=== PATIENT | female | born 1955 | race Two or more races ===

== ENCOUNTER 2023-11-06 11:57 | Emergency (ER) | payer OTHER ==
[~2023-11-06] VITALS: Ht 162.6 cm; Wt 72.6 kg
[2023-11-06] MEDS ORDERED: METFORMIN HCL1000 M2 PO (12:25)
[2023-11-06] MEDS ORDERED: JARDIANCE10 MG PO (12:25)
[2023-11-06] MEDS ORDERED: AMLODIPINE-OLM1 EAC2 PO (12:26)
[2023-11-06] MEDS ORDERED: ZESTORETIC 20-1 EAC1 PO (12:26)
[2023-11-06] MEDS ORDERED: HUMULIN N100 UNIT/2 IJ (12:27)
[2023-11-06] MEDS ORDERED: BUDESONIDE 0.5 MG/2 ML AMPUL.NEB IH STA (12:54)
[2023-11-06] MEDS ORDERED: HYDROCODONE/CHLORPHEN P-STIREX 5 ML ML PO STA (12:55)
[2023-11-06] MEDS ORDERED: LEVALBUTEROL HCL 1.25 MG/3 ML SOLUTION IH STA (12:55)
[2023-11-06 13:26] LABS: MEAN CORPUSCULAR HEMOGLOBIN 29.6 pg (27.00-32.0); PLATELET COUNT 254 K/uL (150-450); RED BLOOD COUNT 4.72 M/uL (4.00-6.00)
[2023-11-06 13:32] LABS: URINE APPEARANCE Cloudy; URINE BACTERIA 4824.2 uL (0.0-1933); URINE BILIRRUBIN Negative (NEGATIVE); URINE BLOOD Negative; URINE COLOR Yellow; URINE EPITHELIAL CELLS 55.4 uL (0.0-38.8); URINE GLUCOSE Negative (NEGATIVE); URINE KETONE Negative (NEGATIVE); URINE LEUKOCYTE Small; URINE NITRATE Positive; URINE PROTEIN Negative (NEGATIVE); URINE RBC 2.1 uL (0.0-20.8); URINE WBC 25.5 uL (0.0-23.2)
[2023-11-06 13:51] LABS: CALCIUM 9.8 mg/dL (8.5-10.1); CREATININE SERUM 0.77 mg/dL (0.55-1.02); GFR 74.77; POTASSIUM 4.02 mEq/L (3.5-5.1)
[2023-11-06 14:00] LABS: URINE CAST 1.37 uL (0.0-1.40)
== END 2023-11-06 15:11 | disposition home or self-care (01) ==
LOC: ER 11:58
PROVIDERS: General Practice
DX: J40 Bronchitis, not specified as acute or chronic (principal); R05.9 Cough, unspecified; Z20.822 Contact with and (suspected) exposure to COVID-19; I10 Essential (primary) hypertension; E11.9 Type 2 diabetes mellitus without complications; Z79.84 Long term (current) use of oral hypoglycemic drugs

== ENCOUNTER 2023-12-26 15:38 | Inpatient (IN) | payer OTHER ==
[~2023-12-26] VITALS: Ht 152.4 cm; Wt 77.1 kg
[~2023-12-26 15:38] MED LIST: AMLODIPINE-OLM1 EAC2 PO; HUMULIN N100 UNIT/2 IJ; JARDIANCE10 MG PO; METFORMIN HCL1000 M2 PO; ZESTORETIC 20-1 EAC1 PO
[2023-12-26] MEDS ORDERED: 0.9 % SODIUM CHLORIDE 500 ML IV ONE (16:30)
[2023-12-26] MEDS ORDERED: INSULIN REGULAR, HUMAN 1,000 UNIT/10 ML UNITS IV NR (16:30)
[2023-12-26] MEDS ORDERED: SODIUM HYPOCHLORITE 1OZ TOP SCH (17:00)
[2023-12-26 17:26] LABS: HEMATOCRIT 42.8 % (36.0-45.00); HEMOGLOBIN 14.2 g/dL (12.0-15.00); MEAN CELL VOLUME 87.6 fL (80.00-100.00); MEAN CORPUSCULAR HGB CONC 33.1 g/dl (32.0-36.0); PLATELET COUNT 367 K/uL (150-450); RED BLOOD COUNT 4.88 M/uL (4.00-6.00); RED CELL DISTRIBUTION WIDTH 14.2 % (11.5-14.5)
[2023-12-26 17:32] LABS: ERYTHROCYTE SEDIMENTATION RATE 50 mm/hr
[2023-12-26 17:37] LABS: PARTIAL THROMBOPLASTIN TIME 24.6 SECONDS (22.0-34.0); PROTHROMBIN TIME 10.9 SECONDS (9.0-11.5)
[2023-12-26 17:41] LABS: ALBUMIN 3.5 gm/dL (3.4-5.0); BILIRUBIN TOTAL 0.32 mg/dL (0.3-1.2); C-REACTIVE PROTEIN 3.23 MG/DL (0.00-0.29); CALCIUM 9.1 mg/dL (8.5-10.1); CREATININE SERUM 0.88 mg/dL (0.55-1.02); GFR 63.9; GLOBULINA 4.9 G/DL (2.4-3.5); POTASSIUM 3.71 mEq/L (3.5-5.1); TOTAL PROTEIN 8.4 gm/dL (6.4-8.2)
[2023-12-26] MEDS ORDERED: CEFTRIAXONE SODIUM 2,000 MG VIAL IV ONE (18:15)
[2023-12-26] MEDS ORDERED: LOSARTAN POTASSIUM 50 MG TABLET PO SCH (18:42)
[2023-12-26] MEDS ORDERED: VANCOMYCIN HCL 1,000 MG VIAL IV SCH (18:44)
[2023-12-26] MEDS ORDERED: CEFEPIME HCL 2,000 MG in 0.9 % SODIUM CHLORIDE 100 ML IV SCH (18:44)
[2023-12-26] MEDS ORDERED: ENALAPRILAT DIHYDRATE 1.25 MG/ML VIAL IV PRN (18:45)
[2023-12-26] MEDS ORDERED: ACETAMINOPHEN 500 MG GEL..CAP PO PRN (18:45)
[2023-12-26] MEDS ORDERED: INSULIN LISPRO 1,000 UNIT/10 ML UNITS SUBCUTANEO PRN (19:00)
[2023-12-26] MEDS ORDERED: 0.9 % SODIUM CHLORIDE 1,000 ML IV SCH (19:00)
[2023-12-26] MEDS ORDERED: DEXTROSE 50 % IN WATER 0.5 G/ML DISP.SYRIN IV PRN (19:00)
[2023-12-27] MEDS ORDERED: DEXTROSE 50 % IN WATER 0.5 G/ML DISP.SYRIN IV PRN (00:45)
[2023-12-27] MEDS ORDERED: INSULIN LISPRO 1,000 UNIT/10 ML UNITS SUBCUTANEO PRN (00:45)
[2023-12-27 01:37] VITALS: BP 186/75; O2SAT 99
[2023-12-27 03:50] LABS: URINE APPEARANCE Clear; URINE BILIRRUBIN Negative (NEGATIVE); URINE BLOOD Negative; URINE COLOR Yellow; URINE KETONE Negative (NEGATIVE); URINE LEUKOCYTE Moderate; URINE NITRATE Negative; URINE PROTEIN Negative (NEGATIVE); URINE UROBILINOGEN 0.2 E.U./dl
[2023-12-27 03:53] LABS: URINE EPITHELIAL CELLS 15.1 uL (0.0-38.8); URINE WBC 161.3 uL (0.0-23.2)
[2023-12-27 03:58] LABS: URINE GLUCOSE 500 MG/DL (NEGATIVE)
[2023-12-27 07:19] LABS: CHOL HDL RATIO 1.9 (0-5.0); TSH 0.885 uIU/mL (0.358-3.74)
[2023-12-27] MEDS ORDERED: ENOXAPARIN SODIUM 40 MG/0.4 ML SYRINGE SUBCUTANEO SCH (09:00)
[2023-12-27] MEDS ORDERED: FAMOTIDINE/PF 20 MG in 0.9 % SODIUM CHLORIDE 8 ML IV PUSH SCH (09:00)
[2023-12-27] MEDS ORDERED: METROnidazole 500 MG TABLET PO SCH (09:00)
[2023-12-27] MEDS ORDERED: CEFEPIME HCL 2,000 MG in 0.9 % SODIUM CHLORIDE 100 ML IV SCH (09:00)
[2023-12-27] MEDS ORDERED: GABAPENTIN 300 MG CAPSULE PO SCH (09:00)
[2023-12-27] MEDS ORDERED: INSULIN GLARGINE,HUM.REC.ANLOG 1,000 UNITS/10 ML UNITS SUBCUTANEO SCH (09:00)
[2023-12-27 09:07] VITALS: BP 131/77; O2SAT 97
[2023-12-27 09:10] VITALS: BP 163/85; O2SAT 97
[2023-12-27] MEDS ORDERED: AMLODIPINE BESYLATE 5 MG TABLET PO SCH (11:16)
[2023-12-27 16:37] VITALS: BP 120/88
[2023-12-28 01:11] VITALS: BP 177/80; O2SAT 99
[2023-12-28] MEDS ORDERED: INSULIN LISPRO 1,000 UNIT/10 ML UNITS SUBCUTANEO STA (08:53)
[2023-12-28 09:11] VITALS: BP 186/75; O2SAT 94
[2023-12-28] MEDS ORDERED: LOSARTAN POTASSIUM 100 MG TABLET PO NR (10:21)
[2023-12-28] MEDS ORDERED: AMLODIPINE BESYLATE 10 MG TABLET PO NR (10:21)
[2023-12-28] MEDS ORDERED: hydrALAZINE HCL 20 MG VIAL IV PRN (17:00)
[2023-12-28 18:46] VITALS: BP 183/74
[2023-12-29 02:15] VITALS: BP 118/52
[2023-12-29 04:18] LABS: HEMATOCRIT 39.4 % (36.0-45.00); HEMOGLOBIN 13.5 g/dL (12.0-15.00); MEAN CELL VOLUME 85.8 fL (80.00-100.00); MEAN CORPUSCULAR HEMOGLOBIN 29.4 pg (27.00-32.0); MEAN CORPUSCULAR HGB CONC 34.2 g/dl (32.0-36.0); PLATELET COUNT 317 K/uL (150-450); RED BLOOD COUNT 4.59 M/uL (4.00-6.00); RED CELL DISTRIBUTION WIDTH 14.5 % (11.5-14.5)
[2023-12-29 04:30] LABS: ALBUMIN 2.9 gm/dL (3.4-5.0); ALKALINE PHOSPHATASE 69 U/L (50-136); ANION GAP 11 (10.0-20.0); BILIRUBIN TOTAL 0.21 mg/dL (0.3-1.2); BLOOD UREA NITROGEN 22 mg/dL (7-18); BUN CREA RATIO 27 (7.0-25.0); CALCIUM 8.7 mg/dL (8.5-10.1); CARBON DIOXIDE 27 mEq/L (21-32); CHLORIDE 106 mmol/L (98-107); CREATININE SERUM 0.83 mg/dL (0.55-1.02); GFR 68.36; GLOBULINA 3.8 G/DL (2.4-3.5); PHOSPHOROUS 2.1 mg/dL (2.5-4.9); POTASSIUM 4.12 mEq/L (3.5-5.1); SODIUM 140 mmol/L (136-145); TOTAL PROTEIN 6.7 gm/dL (6.4-8.2)
[2023-12-29 04:38] LABS: ALT/SGPT 16 U/L (12-78); AST/SGOT < 3 U/L (15-37); GLUCOSE FASTING 307 mg/dL (65-100); OSMOLALITY SERUM 294 MOSM/KG (275-295)
[2023-12-29] MEDS ORDERED: INSULIN LISPRO 1,000 UNIT/10 ML UNITS SUBCUTANEO SCH (08:00)
[2023-12-29] MEDS ORDERED: ONDANSETRON HCL 4 MG in 0.9 % SODIUM CHLORIDE 50 ML IV PRN (08:15)
[2023-12-29 08:39] VITALS: BP 140/74; O2SAT 99
[2023-12-29] MEDS ORDERED: AMLODIPINE BESYLATE 10 MG TABLET PO SCH (09:00)
[2023-12-29] MEDS ORDERED: LOSARTAN POTASSIUM 100 MG TABLET PO SCH (09:00)
[2023-12-29] MEDS ORDERED: POTASSIUM PHOS,M-BASIC-D-BASIC 15 MM in 0.9 % SODIUM CHLORIDE 250 ML IV NR (10:40)
[2023-12-29] MEDS ORDERED: MAGNESIUM SULFATE IN WATER 50 ML IV NR (10:41)
[2023-12-29] MEDS ORDERED: METOCLOPRAMIDE HCL 5 MG/ML VIAL IV SCH (10:50)
[2023-12-29 17:10] VITALS: BP 140/63
[2023-12-30 02:20] VITALS: BP 196/92
[2023-12-30 08:37] VITALS: BP 165/70
[2023-12-30] MEDS ORDERED: HYDROCHLOROTHIAZIDE 25 MG TABLET PO SCH (11:14)
[2023-12-30] MEDS ORDERED: INSULIN LISPRO 1,000 UNIT/10 ML UNITS SUBCUTANEO SCH (12:00)
[2023-12-30] MEDS ORDERED: BENZONATATE 100 MG CAPSULE PO PRN (17:00)
[2023-12-30] MEDS ORDERED: GABAPENTIN 300 MG CAPSULE PO PRN (17:00)
[2023-12-30] MEDS ORDERED: hydrALAZINE HCL 25 MG TABLET PO SCH (17:01)
[2023-12-30 17:22] VITALS: BP 160/80
[2023-12-31 02:39] VITALS: BP 142/82; O2SAT 95
[2023-12-31 08:01] VITALS: BP 165/74
[2023-12-31] MEDS ORDERED: INSULIN GLARGINE,HUM.REC.ANLOG 1,000 UNITS/10 ML UNITS SUBCUTANEO SCH (09:00)
[2023-12-31 16:48] VITALS: BP 154/73
[2023-12-31] MEDS ORDERED: CEFTRIAXONE SODIUM 2,000 MG VIAL IV SCH (17:00)
[2023-12-31] MEDS ORDERED: DOXAZOSIN MESYLATE 4 MG TABLET PO SCH (17:56)
[2023-12-31] MEDS ORDERED: METOPROLOL SUCCINATE 25 MG TAB.SR.24H PO SCH (17:58)
[2023-12-31] MEDS ORDERED: MELATONIN 5 MG TABLET PO SCH (21:00)
[2024-01-01 00:27] VITALS: BP 145/70; O2SAT 98
[2024-01-01 07:58] VITALS: BP 149/78
[2024-01-01] MEDS ORDERED: INSULIN LISPRO 1,000 UNIT/10 ML UNITS SUBCUTANEO SCH ×3 (08:00→17:00)
[2024-01-01] MEDS ORDERED: INSULIN GLARGINE,HUM.REC.ANLOG 1,000 UNITS/10 ML UNITS SUBCUTANEO SCH (09:00)
[2024-01-01 15:00] VITALS: BP 149/74; O2SAT 92
[2024-01-01] MEDS ORDERED: FAMOtidine 20 MG TABLET PO SCH (21:00)
[2024-01-02 00:45] VITALS: BP 151/69; O2SAT 95
[2024-01-02 06:15] LABS: HEMATOCRIT 40.9 % (36.0-45.00); MEAN CELL VOLUME 86.3 fL (80.00-100.00); MEAN CORPUSCULAR HEMOGLOBIN 29.6 pg (27.00-32.0); MEAN CORPUSCULAR HGB CONC 34.3 g/dl (32.0-36.0); PLATELET COUNT 282 K/uL (150-450); RED BLOOD COUNT 4.74 M/uL (4.00-6.00); RED CELL DISTRIBUTION WIDTH 14.3 % (11.5-14.5)
[2024-01-02 07:07] LABS: ALBUMIN 2.7 gm/dL (3.4-5.0); BILIRUBIN TOTAL 0.35 mg/dL (0.3-1.2); CALCIUM 8.7 mg/dL (8.5-10.1); CREATININE SERUM 0.54 mg/dL (0.55-1.02); GFR 112.27; GLOBULINA 3.5 G/DL (2.4-3.5); MAGNESIUM 1.5 mg/dL (1.8-2.4); POTASSIUM 3.41 mEq/L (3.5-5.1); TOTAL PROTEIN 6.2 gm/dL (6.4-8.2)
[2024-01-02 08:14] VITALS: BP 140/87; O2SAT 97
[2024-01-02] MEDS ORDERED: INSULIN LISPRO 1,000 UNIT/10 ML UNITS SUBCUTANEO SCH ×2 (08:24→12:00)
[2024-01-02] MEDS ORDERED: INSULIN GLARGINE,HUM.REC.ANLOG 1,000 UNITS/10 ML UNITS SUBCUTANEO SCH (09:00)
[2024-01-02] MEDS ORDERED: POTASSIUM CHLORIDE 20MEQ/100ML H2O PB IV NR (11:15)
[2024-01-02] MEDS ORDERED: POTASSIUM BICARBONATE/CIT AC 25 MEQ TABLET.EFF PO NR (11:15)
[2024-01-02] MEDS ORDERED: MAGNESIUM SULFATE IN WATER 4 GM/100 ML PIGGYBACK IV STA (11:39)
[2024-01-02 16:47] VITALS: BP 127/60; O2SAT 94
[2024-01-03 01:07] VITALS: BP 127/67; O2SAT 90
[2024-01-03 08:34] VITALS: BP 160/77; O2SAT 95
[2024-01-03] MEDS ORDERED: LOSARTAN POTAS100 MG PO (13:06)
[2024-01-03] MEDS ORDERED: METRONIDAZOLE500 MG PO (13:06)
[2024-01-03] MEDS ORDERED: AMLODIPINE BESY10 MG PO (13:06)
[2024-01-03] MEDS ORDERED: HYDRALAZINE HCL25 MG PO (13:07)
[2024-01-03] MEDS ORDERED: GABAPENTIN300 MG PO (13:07)
[2024-01-03] MEDS ORDERED: TOPROL XL25 M1 PO (13:07)
[2024-01-03] MEDS ORDERED: PROTONIX20 MG PO (13:08)
[2024-01-03] MEDS ORDERED: BENZONATATE100 MG PO (13:08)
[2024-01-03] MEDS ORDERED: HYDROCHLOROTHIA25 MG PO (13:08)
[2024-01-03] MEDS ORDERED: MELATONIN5 M2 PO (13:09)
[2024-01-03] MEDS ORDERED: METROnidazole 500 MG TABLET PO SCH (17:00)
[2024-01-03 17:07] VITALS: BP 126/63; O2SAT 98
== END 2024-01-03 17:24 | disposition home or self-care (01) | DRG 982 ==
LOC: ER 15:40 → SEC-K 19:10 → MEDI 19:10
PROVIDERS: General Practice; Nurse Practitioner Family; ADMIT Internal Medicine; ATTEND Internal Medicine
PROC: B44HZZZ Ultrasonography of Bilateral Lower Extremity Arteries (ICD-10-PCS; 2023-12-26)
PROC: B54DZZZ Ultrasonography of Bilateral Lower Extremity Veins (ICD-10-PCS; 2023-12-26)
PROC: 0JDR0ZZ Extraction of Left Foot Subcutaneous Tissue and Fascia, Open Approach (ICD-10-PCS; principal; 2023-12-27)
PROC: 0JDQ0ZZ Extraction of Right Foot Subcutaneous Tissue and Fascia, Open Approach (ICD-10-PCS; 2023-12-27)
PROC: 0JDR0ZZ Extraction of Left Foot Subcutaneous Tissue and Fascia, Open Approach (ICD-10-PCS; 2024-01-01)
PROC: 0JDQ0ZZ Extraction of Right Foot Subcutaneous Tissue and Fascia, Open Approach (ICD-10-PCS; 2024-01-01)
DX: E11.621 Type 2 diabetes mellitus with foot ulcer (principal); L03.115 Cellulitis of right lower limb; L97.319 Non-pressure chronic ulcer of right ankle with unspecified severity; L97.329 Non-pressure chronic ulcer of left ankle with unspecified severity; L03.116 Cellulitis of left lower limb; Z79.4 Long term (current) use of insulin; L08.9 Local infection of the skin and subcutaneous tissue, unspecified; B95.61 Methicillin susceptible Staphylococcus aureus infection as the cause of diseases classified elsewhere; B96.1 Klebsiella pneumoniae [K. pneumoniae] as the cause of diseases classified elsewhere; B96.89 Other specified bacterial agents as the cause of diseases classified elsewhere; E11.65 Type 2 diabetes mellitus with hyperglycemia; I10 Essential (primary) hypertension; I87.2 Venous insufficiency (chronic) (peripheral); E87.6 Hypokalemia; I83.93 Asymptomatic varicose veins of bilateral lower extremities

== ENCOUNTER 2024-11-17 17:18 | Inpatient (IN) | payer OTHER ==
[~2024-11-17] VITALS: Ht 152.4 cm; Wt 81.6 kg
[~2024-11-17 17:18] MED LIST changes: +AMLODIPINE BESY10 MG PO; +BENZONATATE100 MG PO; +GABAPENTIN300 MG PO; +HYDRALAZINE HCL25 MG PO; +HYDROCHLOROTHIA25 MG PO; +LOSARTAN POTAS100 MG PO; +MELATONIN5 M2 PO; +METRONIDAZOLE500 MG PO; +PROTONIX20 MG PO; +TOPROL XL25 M1 PO
--- NOTE | 2024-11-17 18:35 | NUR ---
PACIENTE ALERTA Y ORIENTADA X3 QUIEN REFIERE VENIR POR DOLOR ABDOMINO PELVICO DESDE HACE VARIOS GLASS. REFIERE PODER EVACUAR MARCELLA Y ORINAR.
[2024-11-17] MEDS ORDERED: FAMOTIDINE/PF 20 MG in 0.9 % SODIUM CHLORIDE 8 ML IV PUSH STA (18:58)
[2024-11-17] MEDS ORDERED: KETOROLAC TROMETHAMINE 15 MG VIAL IV ONE (19:00)
[2024-11-17 19:25] LABS: BASO % 0.2 % (0.1-1.2); EOS # 0.04 (0.04-0.54); EOS % 0.3 % (0.7-7.0); LYMPH # 1.33 (1.18-3.74); LYMPH % 10.5 % (19.3-53.1); MEAN PLATELET VOLUME 11.00 fl (9.4-12.4); MONO # 0.78 (0.24-0.82); MONO % 6.1 % (4.7-12.5); NEUT # 10.46 (1.56-6.13); NEUT % 82.5 % (34.0-71.1); RED CELL DISTRIBUTION WIDTH 13.2 % (11.6-14.4)
--- NOTE | 2024-11-17 19:25 | NUR ---
SE ORIENTA A PTE SOBRE TX MEDICO LA MSIMA REFIERE ENTENDER Y ACEPTAR. SE COLOCA H/L EN MANO DERECHA, SE RECOLECTAN MUESTRAS DE LAB Y SE ADMINISTRAN MEDICAMENTOS AMOL ORDEN MEDICA.
[2024-11-17 19:53] LABS: ALT/SGPT 91.0 U/L (12-78); AST/SGOT 183.0 U/L (15-37); BILIRUBIN TOTAL 0.37 mg/dL (0.3-1.2); GLOBULINA 4.7 G/DL (2.4-3.5); GLUCOSE FASTING 175.0 mg/dL (65-100)
[2024-11-17 20:06] LABS: BUN CREA RATIO 12.0 (7.0-25.0); GFR 5.6; OSMOLALITY SERUM 303.0 MOSM/KG (275-295)
[2024-11-17 20:08] LABS: CREATININE SERUM 7.24 mg/dL (0.55-1.02)
[2024-11-17 21:06] LABS: URINE APPEARANCE Clear; URINE BILIRRUBIN Negative (NEGATIVE); URINE BLOOD Large; URINE COLOR Yellow; URINE KETONE Negative (NEGATIVE); URINE LEUKOCYTE Trace; URINE NITRATE Negative; URINE UROBILINOGEN 0.2 E.U./dl
[2024-11-17 21:10] LABS: URINE BACTERIA 384.0 uL (0.0-1933); URINE EPITHELIAL CELLS 21.9 uL (0.0-38.8); URINE RBC 21.4 uL (0.0-20.8); URINE WBC 17.3 uL (0.0-23.2)
[2024-11-17] MEDS ORDERED: 0.9 % SODIUM CHLORIDE 1,000 ML IV SCH (21:30)
[2024-11-17] MEDS ORDERED: ACETAMINOPHEN 500 MG GEL..CAP PO PRN (21:30)
[2024-11-17] MEDS ORDERED: 0.9 % SODIUM CHLORIDE 1,000 ML IV ONE ×2 (21:30)
[2024-11-17] MEDS ORDERED: POTASSIUM CHLORIDE IN WATER 100 ML IV SCH (21:31)
[2024-11-17] MEDS ORDERED: INSULIN LISPRO 1,000 UNIT/10 ML UNITS SUBCUTANEO PRN (21:45)
[2024-11-17] MEDS ORDERED: DEXTROSE 50 % IN WATER 0.5 G/ML DISP.SYRIN IV PRN (21:45)
[2024-11-17] MEDS ORDERED: ONDANSETRON HCL 4 MG in 0.9 % SODIUM CHLORIDE 50 ML IV PRN (21:45)
[2024-11-17 21:46] LABS: URINE CAST 0.29 uL (0.0-1.40); URINE GLUCOSE 100 MG/DL (NEGATIVE); URINE PROTEIN 100 (NEGATIVE)
[2024-11-17 21:49] LABS: URINE YEAST FEW /hpf
[2024-11-17 22:31] LABS: ABG PH 7.342 (7.35-7.45); ABG PO2 82.4 mmHg (80-100); BICARBONATE 20.1 mmol/l (23-25)
[2024-11-17 22:46] LABS: INR 1.08
[2024-11-17 23:13] VITALS: BP 158/74
[2024-11-17 23:56] LABS: o2 21 %
[2024-11-18 04:20] VITALS: BP 186/79; O2SAT 96
[2024-11-18 08:35] VITALS: BP 159/78; O2SAT 96
[2024-11-18] MEDS ORDERED: ENOXAPARIN SODIUM 30 MG/0.3 ML SYRINGE SUBCUTANEO SCH (09:00)
[2024-11-18] MEDS ORDERED: METOPROLOL SUCCINATE 25 MG TAB.SR.24H PO SCH (09:00)
[2024-11-18] MEDS ORDERED: AMLODIPINE BESYLATE 10 MG TABLET PO SCH (09:00)
[2024-11-18 18:10] VITALS: BP 147/63
[2024-11-18] MEDS ORDERED: LACTOBACILLUS ACIDOPHILUS 1 CAP CAP PO SCH (18:32)
[2024-11-18] MEDS ORDERED: PIPERACILLIN/TAZOBACTAM SODIUM 2.25 GM VIAL IV SCH (21:00)
[2024-11-19 00:41] VITALS: BP 134/73; O2SAT 94
[2024-11-19] MEDS ORDERED: INSULIN LISPRO 1,000 UNIT/10 ML UNITS SUBCUTANEO SCH (08:00)
[2024-11-19] MEDS ORDERED: INSULIN NPH HUM/REG INSULIN HM 1,000 UNIT/10 ML UNITS SUBCUTANEO SCH ×2 (08:00→17:00)
[2024-11-19 08:09] VITALS: BP 138/64; O2SAT 94
[2024-11-19] MEDS ORDERED: INSULIN GLARGINE,HUM.REC.ANLOG 1,000 UNITS/10 ML UNITS SUBCUTANEO SCH (09:00)
[2024-11-19] MEDS ORDERED: CHLORHEXIDINE GLUCONATE 120 ML BOTTLE TOP SCH (09:00)
[2024-11-19 14:06] LABS: BASO % 0.3 % (0.1-1.2); EOS # 0.18 (0.04-0.54); EOS % 1.5 % (0.7-7.0); LYMPH # 0.98 (1.18-3.74); LYMPH % 8.3 % (19.3-53.1); MEAN PLATELET VOLUME 11.40 fl (9.4-12.4); MONO # 0.66 (0.24-0.82); MONO % 5.6 % (4.7-12.5); NEUT # 9.92 (1.56-6.13); NEUT % 83.9 % (34.0-71.1); RED CELL DISTRIBUTION WIDTH 13.3 % (11.6-14.4)
[2024-11-19 14:15] LABS: ERYTHROCYTE SEDIMENTATION RATE 68 mm/hr (0-30)
[2024-11-19 14:42] LABS: ALT/SGPT 136.0 U/L (12-78); AST/SGOT 194.0 U/L (15-37); BILIRUBIN TOTAL 0.36 mg/dL (0.3-1.2); GLOBULINA 3.6 G/DL (2.4-3.5)
[2024-11-19 14:49] LABS: BUN CREA RATIO 16.0 (7.0-25.0); GFR 5.53; GLUCOSE FASTING 282.0 mg/dL (65-100); OSMOLALITY SERUM 322.0 MOSM/KG (275-295)
[2024-11-19 14:53] LABS: CREATININE SERUM 7.32 mg/dL (0.55-1.02)
[2024-11-19 18:33] VITALS: BP 137/85
[2024-11-20 00:35] VITALS: BP 123/76
[2024-11-20 08:53] VITALS: BP 140/70; O2SAT 94
[2024-11-20 16:34] LABS: FECAL LEUKOCYTES NEGATIVE (NEGATIVE); ob POSITIVE (NEGATIVE)
[2024-11-20 16:52] VITALS: BP 113/68; O2SAT 95
[2024-11-21 01:02] VITALS: BP 134/74; O2SAT 95
[2024-11-21 09:20] VITALS: BP 144/82; O2SAT 97
[2024-11-21] MEDS ORDERED: MEROPENEM 500 MG/VIAL VIAL IV STA (09:36)
[2024-11-21 10:58] LABS: BASO % 0.3 % (0.1-1.2); EOS # 0.36 (0.04-0.54); EOS % 2.5 % (0.7-7.0); LYMPH # 1.13 (1.18-3.74); LYMPH % 8.0 % (19.3-53.1); MEAN PLATELET VOLUME 10.60 fl (9.4-12.4); MONO # 0.68 (0.24-0.82); MONO % 4.8 % (4.7-12.5); NEUT # 11.89 (1.56-6.13); NEUT % 83.7 % (34.0-71.1); RED CELL DISTRIBUTION WIDTH 13.5 % (11.6-14.4)
[2024-11-21 12:00] LABS: ALT/SGPT 164.0 U/L (12-78); AST/SGOT 129.0 U/L (15-37); BILIRUBIN TOTAL 0.38 mg/dL (0.3-1.2); GLOBULINA 3.6 G/DL (2.4-3.5)
[2024-11-21 12:55] LABS: OSMOLALITY SERUM 335.0 MOSM/KG (275-295)
[2024-11-21 12:56] LABS: BUN CREA RATIO 21.0 (7.0-25.0); GFR 6.99
[2024-11-21 12:57] LABS: GLUCOSE FASTING 338.0 mg/dL (65-100)
[2024-11-21 12:58] LABS: CREATININE SERUM 5.97 mg/dL (0.55-1.02)
[2024-11-21 17:34] VITALS: BP 113/67; O2SAT 96
[2024-11-21] MEDS ORDERED: MEROPENEM 500 MG/VIAL VIAL IV SCH (21:00)
[2024-11-22 02:08] VITALS: BP 142/67
[2024-11-22 08:01] LABS: ALT/SGPT 139.0 U/L (12-78); AST/SGOT 68.0 U/L (15-37); BILIRUBIN TOTAL 0.32 mg/dL (0.3-1.2); GLOBULINA 3.2 G/DL (2.4-3.5)
[2024-11-22 08:23] LABS: BUN CREA RATIO 25.0 (7.0-25.0); GFR 6.95; GLUCOSE FASTING 281.0 mg/dL (65-100); OSMOLALITY SERUM 342.0 MOSM/KG (275-295)
[2024-11-22 08:24] LABS: CREATININE SERUM 6.0 mg/dL (0.55-1.02)
[2024-11-22 09:17] VITALS: BP 148/75
[2024-11-22] MEDS ORDERED: INSULIN NPH HUM/REG INSULIN HM 1,000 UNIT/10 ML UNITS SUBCUTANEO SCH ×2 (10:21→17:00)
[2024-11-22] MEDS ORDERED: POTASSIUM CHLORIDE IN WATER 100 ML IV SCH (16:00)
[2024-11-22 17:55] VITALS: BP 125/67; O2SAT 93
[2024-11-23 02:05] VITALS: BP 130/65; O2SAT 97
[2024-11-23 07:55] LABS: BASO % 0.2 % (0.1-1.2); EOS # 0.35 (0.04-0.54); EOS % 2.8 % (0.7-7.0); LYMPH # 1.18 (1.18-3.74); LYMPH % 9.3 % (19.3-53.1); MEAN PLATELET VOLUME 11.10 fl (9.4-12.4); MONO # 0.81 (0.24-0.82); MONO % 6.4 % (4.7-12.5); NEUT # 10.25 (1.56-6.13); NEUT % 80.5 % (34.0-71.1); RED CELL DISTRIBUTION WIDTH 13.7 % (11.6-14.4)
[2024-11-23 08:42] VITALS: BP 140/79; O2SAT 99
[2024-11-23 18:36] VITALS: BP 120/54; O2SAT 97
[2024-11-23] MEDS ORDERED: LOPERAMIDE HCL 2 MG CAPSULE PO PRN (19:15)
[2024-11-24 02:15] VITALS: BP 150/70; O2SAT 96
[2024-11-24 06:56] LABS: ALT/SGPT 99.0 U/L (12-78); AST/SGOT 32.0 U/L (15-37); BILIRUBIN TOTAL 0.43 mg/dL (0.3-1.2); GFR 10.27; GLOBULINA 3.8 G/DL (2.4-3.5); GLUCOSE FASTING 169.0 mg/dL (65-100)
[2024-11-24 07:28] LABS: BUN CREA RATIO 31.0 (7.0-25.0); OSMOLALITY SERUM 332.0 MOSM/KG (275-295)
[2024-11-24 07:29] LABS: CREATININE SERUM 4.28 mg/dL (0.55-1.02)
[2024-11-24 09:52] VITALS: BP 137/71; O2SAT 95
[2024-11-24] MEDS ORDERED: POTASSIUM BICARBONATE/CIT AC 25 MEQ TABLET.EFF PO SCH (12:00)
[2024-11-24 16:25] VITALS: BP 126/63
[2024-11-25 02:18] VITALS: BP 141/73; O2SAT 97
[2024-11-25 06:55] LABS: BUN CREA RATIO 35.0 (7.0-25.0); CREATININE SERUM 3.56 mg/dL (0.55-1.02); GFR 12.7; GLUCOSE FASTING 158.0 mg/dL (65-100); OSMOLALITY SERUM 334.0 MOSM/KG (275-295)
[2024-11-25 09:06] VITALS: BP 130/65; O2SAT 95
[2024-11-25] MEDS ORDERED: MAGNESIUM SULFATE IN WATER 50 ML IV NR (14:00)
[2024-11-25] MEDS ORDERED: POTASSIUM CHLORIDE IN WATER 100 ML IV NR (17:00)
[2024-11-25] MEDS ORDERED: CALCIUM CARBONATE/VITAMIN D3 1 TAB TABLET PO SCH (17:00)
[2024-11-25] MEDS ORDERED: AMINO ACIDS 1 EACH TABLET PO SCH (17:00)
[2024-11-25 17:48] VITALS: BP 150/67; O2SAT 97
[2024-11-26 01:00] VITALS: BP 111/58; O2SAT 97
[2024-11-26 07:10] LABS: ALT/SGPT 59.0 U/L (12-78); AST/SGOT 31.0 U/L (15-37); BILIRUBIN TOTAL 0.35 mg/dL (0.3-1.2); BUN CREA RATIO 37.0 (7.0-25.0); CREATININE SERUM 2.8 mg/dL (0.55-1.02); GFR 16.75; GLOBULINA 3.5 G/DL (2.4-3.5); GLUCOSE FASTING 152.0 mg/dL (65-100); OSMOLALITY SERUM 328.0 MOSM/KG (275-295)
[2024-11-26 08:49] VITALS: BP 174/68; O2SAT 99
[2024-11-26] MEDS ORDERED: NYSTATIN 30 GM,SILVER SULFADIAZINE 50 GM,ZINC OXIDE 30 GM TOP SCH (17:00)
[2024-11-26 17:54] VITALS: BP 160/75; O2SAT 98
[2024-11-27 02:05] VITALS: BP 158/71; O2SAT 97
[2024-11-27 07:13] LABS: ALT/SGPT 59.0 U/L (12-78); AST/SGOT 37.0 U/L (15-37); BILIRUBIN TOTAL 0.35 mg/dL (0.3-1.2); CREATININE SERUM 2.17 mg/dL (0.55-1.02); GFR 22.48; GLOBULINA 3.4 G/DL (2.4-3.5); GLUCOSE FASTING 177.0 mg/dL (65-100)
[2024-11-27 07:14] LABS: BUN CREA RATIO 40.0 (7.0-25.0); OSMOLALITY SERUM 323.0 MOSM/KG (275-295)
[2024-11-27 09:33] VITALS: BP 164/68; O2SAT 97
[2024-11-27 18:07] VITALS: BP 144/70; O2SAT 96
[2024-11-28 00:54] VITALS: BP 154/78; O2SAT 97
[2024-11-28 08:00] VITALS: BP 156/78; O2SAT 95
[2024-11-28] MEDS ORDERED: INSULIN NPH HUM/REG INSULIN HM 1,000 UNIT/10 ML UNITS SUBCUTANEO SCH ×2 (08:35→17:00)
[2024-11-28] MEDS ORDERED: FAMOTIDINE/PF 20 MG/2 ML VIAL IV PUSH STA (09:58)
[2024-11-28] MEDS ORDERED: ONDANSETRON HCL 4 MG in 0.9 % SODIUM CHLORIDE 50 ML IV SCH (17:00)
[2024-11-28 18:08] VITALS: BP 160/74; O2SAT 99
[2024-11-28] MEDS ORDERED: FAMOTIDINE/PF 20 MG/2 ML VIAL IV PUSH SCH (21:00)
[2024-11-29 00:36] VITALS: BP 164/80; O2SAT 96
[2024-11-29] MEDS ORDERED: INSULIN NPH HUM/REG INSULIN HM 1,000 UNIT/10 ML UNITS SUBCUTANEO SCH (08:00)
[2024-11-29 08:07] VITALS: BP 133/85; O2SAT 97
[2024-11-29 08:12] LABS: ALT/SGPT 103.0 U/L (12-78); AST/SGOT 87.0 U/L (15-37); BILIRUBIN TOTAL 0.37 mg/dL (0.3-1.2); BUN CREA RATIO 38.0 (7.0-25.0); CREATININE SERUM 1.8 mg/dL (0.55-1.02); GFR 27.9; GLOBULINA 3.4 G/DL (2.4-3.5); GLUCOSE FASTING 161.0 mg/dL (65-100); OSMOLALITY SERUM 314.0 MOSM/KG (275-295)
[2024-11-29] MEDS ORDERED: POTASSIUM CHLORIDE IN WATER 100 ML IV NR (11:00)
[2024-11-29] MEDS ORDERED: ONDANSETRON HCL 4 MG in 0.9 % SODIUM CHLORIDE 50 ML IV PRN (16:15)
[2024-11-29 18:22] VITALS: BP 101/59; O2SAT 96
[2024-11-30 00:45] VITALS: BP 148/53; O2SAT 100
[2024-11-30 07:22] LABS: ALT/SGPT 64.0 U/L (12-78); AST/SGOT 24.0 U/L (15-37); BILIRUBIN TOTAL 0.44 mg/dL (0.3-1.2); BUN CREA RATIO 41.0 (7.0-25.0); CREATININE SERUM 1.6 mg/dL (0.55-1.02); GFR 31.96; GLOBULINA 3.3 G/DL (2.4-3.5)
[2024-11-30 07:23] LABS: GLUCOSE FASTING 227.0 mg/dL (65-100); OSMOLALITY SERUM 311.0 MOSM/KG (275-295)
[2024-11-30] MEDS ORDERED: POTASSIUM CHLORIDE IN WATER 100 ML IV NR (10:30)
[2024-11-30 11:09] VITALS: BP 166/78; O2SAT 95
[2024-11-30 16:44] VITALS: BP 153/79; O2SAT 96
[2024-11-30] MEDS ORDERED: BISMUTH SUBSALICYLATE 262 MG/15 ML BLIST.PACK PO SCH (16:52)
[2024-11-30] MEDS ORDERED: BISMUTH SUBSALICYLATE 524 MG/30 ML BLIST.PACK PO ONE (18:09)
[2024-12-01 00:27] VITALS: BP 160/80; O2SAT 98
[2024-12-01 08:16] VITALS: BP 140/83
[2024-12-01 16:38] VITALS: BP 137/72
[2024-12-01] MEDS ORDERED: INSULIN NPH HUM/REG INSULIN HM 1,000 UNIT/10 ML UNITS SUBCUTANEO SCH (17:00)
[2024-12-02 00:55] VITALS: BP 160/76; O2SAT 96
[2024-12-02 07:58] LABS: BASO % 0.4 % (0.1-1.2); EOS # 0.25 (0.04-0.54); EOS % 2.5 % (0.7-7.0); LYMPH # 1.35 (1.18-3.74); LYMPH % 13.5 % (19.3-53.1); MEAN PLATELET VOLUME 10.80 fl (9.4-12.4); MONO # 0.69 (0.24-0.82); MONO % 6.9 % (4.7-12.5); NEUT # 7.60 (1.56-6.13); NEUT % 76.2 % (34.0-71.1); RED CELL DISTRIBUTION WIDTH 14.0 % (11.6-14.4)
[2024-12-02 08:11] VITALS: BP 149/76; O2SAT 95
[2024-12-02 08:40] LABS: ALT/SGPT 36.0 U/L (12-78); AST/SGOT 15.0 U/L (15-37); BILIRUBIN TOTAL 0.42 mg/dL (0.3-1.2); BUN CREA RATIO 40.0 (7.0-25.0); CREATININE SERUM 1.22 mg/dL (0.55-1.02); GFR 43.7; GLOBULINA 3.5 G/DL (2.4-3.5); OSMOLALITY SERUM 309.0 MOSM/KG (275-295)
[2024-12-02 08:41] LABS: GLUCOSE FASTING 204.0 mg/dL (65-100)
[2024-12-02] MEDS ORDERED: HUMULIN 70100 UNIT/2 SUBCUTANEO ×2 (15:14)
[2024-12-02] MEDS ORDERED: ZOFRAN8 MG PO (15:14)
[2024-12-02] MEDS ORDERED: FAMOTIDINE20 MG PO (15:14)
[2024-12-02] MEDS ORDERED: LOPERAMIDE2 MG PO (15:14)
[2024-12-02] MEDS ORDERED: AMLODIPINE BESY10 MG PO (15:14)
[2024-12-02] MEDS ORDERED: PRE PROTEIN1 EACH PO (15:14)
[2024-12-02] MEDS ORDERED: TOPROL XL25 M1 PO (15:14)
[2024-12-02] MEDS ORDERED: INTESTINEX680 M1 PO (15:14)
== END 2024-12-02 17:45 | disposition home or self-care (01) | DRG 682 ==
LOC: ER 17:18 → MEDJ 21:57
PROVIDERS: General Practice; Internal Medicine; Internal Medicine Nephrology; ADMIT Internal Medicine; ATTEND Internal Medicine
PROC: BW21YZZ Computerized Tomography (CT Scan) of Abdomen and Pelvis using Other Contrast (ICD-10-PCS; 2024-11-17)
PROC: BT4JZZZ Ultrasonography of Kidneys and Bladder (ICD-10-PCS; 2024-11-17)
PROC: 0HBMXZZ Excision of Right Foot Skin, External Approach (ICD-10-PCS; principal; 2024-11-19)
PROC: B24BYZZ Ultrasonography of Heart with Aorta using Other Contrast (ICD-10-PCS; 2024-11-19)
PROC: 02HV33Z Insertion of Infusion Device into Superior Vena Cava, Percutaneous Approach (ICD-10-PCS; 2024-11-19)
DX: N17.9 Acute kidney failure, unspecified (principal); K85.90 Acute pancreatitis without necrosis or infection, unspecified; L97.319 Non-pressure chronic ulcer of right ankle with unspecified severity; E11.9 Type 2 diabetes mellitus without complications; Z79.4 Long term (current) use of insulin; E78.5 Hyperlipidemia, unspecified; E11.22 Type 2 diabetes mellitus with diabetic chronic kidney disease; I12.9 Hypertensive chronic kidney disease with stage 1 through stage 4 chronic kidney disease, or unspecified chronic kidney disease; N18.9 Chronic kidney disease, unspecified; I83.013 Varicose veins of right lower extremity with ulcer of ankle; E87.6 Hypokalemia; B96.20 Unspecified Escherichia coli [E. coli] as the cause of diseases classified elsewhere; N18.6 End stage renal disease